=== PATIENT | male | born 1975 | race Caucasian/White ===

== ENCOUNTER 2022-08-26 10:57 | Emergency (ER) | payer OTHER ==
[2022-08-26 11:17] VITALS: RESP 18; TEMP 97.9; BMI 26.5
[2022-08-26] MEDS ORDERED: MAG HYDROX/AL HYDROX/SIMETH 30 ML UNIT-DOSE CUP PO ONE (11:37)
[2022-08-26] MEDS ORDERED: FAMOTIDINE 20 MG/50 ML IVPB 20 MG/50 ML MG IVPB ONE ×2 (11:37→12:02)
[2022-08-26] MEDS ORDERED: ONDANSETRON 4 MG/2 ML VIAL IVPUSH ONE (11:37)
[2022-08-26] MEDS ORDERED: ONDANSETRON 4 MG/2 ML VIAL ONE (12:02)
[2022-08-26] MEDS ORDERED: MAG HYDROX/AL HYDROX/SIMETH 30 ML UNIT-DOSE CUP ONE (12:02)
[2022-08-26] MEDS ORDERED: chlorproMAZINE HCL 25 MG/1 ML AMP IM ONE (12:29)
[2022-08-26 12:42] LABS: HEMATOCRIT 42.8 % (35.4-49); MCH 31.7 pg (25.7-33.7); MEAN CELL VOLUME 90.5 fl (80-96); MEAN PLT VOLUME 7.9 fl (7.5-11.1); PLATELET COUNT 322.9 10^3/uL (134-434); RBC 4.73 10^6/uL (4.00-5.60); RDW 13.6 % (11.9-15.9); WHITE BLOOD COUNT 16.9 10^3/uL (4.0-10.8)
[2022-08-26] MEDS ORDERED: chlorproMAZINE HCL 25 MG/1 ML AMP ONE (12:42)
[2022-08-26 12:46] LABS: ALBUMIN 3.9 g/dl (3.4-5.0); CALCIUM 9.1 mg/dl (8.5-10); CREATININE 0.7 mg/dl (0.55-1.3); TOT PROT 6.4 g/dl (6.4-8.2)
[2022-08-26 13:28] VITALS: BP 122/82; PULSE 83
[2022-08-26 13:52] LABS: PLATELET ESTIMATE ADEQUATE
[2022-08-26 15:51] LABS: INR 1.2 (0.83-1.09); PROTHROMBIN TIME (PATIENT) 13.8 SEC (9.7-13.0)
[2022-08-26 15:54] LABS: ACTIVATED PTT 28.7 SECONDS (25.2-36.5)
== END 2022-08-26 15:35 | disposition home or self-care (01) ==
LOC: FER 10:57
PROC: 3E023GC Introduction of Other Therapeutic Substance into Muscle, Percutaneous Approach (ICD-10-PCS; principal; 2022-08-26)
PROC: 3E033GC Introduction of Other Therapeutic Substance into Peripheral Vein, Percutaneous Approach (ICD-10-PCS; 2022-08-26)
PROC: 3E033GC Introduction of Other Therapeutic Substance into Peripheral Vein, Percutaneous Approach (ICD-10-PCS; 2022-08-26)
DX: R06.6 Hiccough (principal); R10.13 Epigastric pain; R07.9 Chest pain, unspecified
CPT/HCPCS: 0241U-QW; 36415; 74177-TC; 80053; 83690; 84484; 85027; 85610; 85651; 85730; 86140; 93005; 99285-25; Q9967

== ENCOUNTER 2024-04-27 04:44 | Day surgery (SDC) | payer OTHER ==
[2024-04-24 09:01] VITALS: BMI 28.4
[2024-04-27] MEDS ORDERED: PROPOFOL 20 ML ONE ×2 (09:48→11:42)
[2024-04-27] MEDS ORDERED: LIDOCAINE HCL/PF 2% SDV 5ML VIAL ONE (09:48)
[2024-04-27] MEDS ORDERED: MIDAZOLAM HCL 2 MG/2 ML SINGLE DOSE VIAL ONE (09:49)
[2024-04-27] MEDS ORDERED: BUPIVACAINE HCL/PF 0.5% (5MG/ML) 10 ML VIAL ONE (10:57)
[2024-04-27] MEDS ORDERED: LIDOCAINE HCL 1%, 10 MG/ML (20ML VIAL) ONE (10:57)
[2024-04-27] MEDS ORDERED: ONDANSETRON 4 MG/2 ML VIAL ONE (11:01)
[2024-04-27] MEDS ORDERED: DEXAMETHASONE SOD PHOSPHATE 4 MG/1 ML VIAL ONE (11:01)
[2024-04-27] MEDS ORDERED: KETOROLAC TROMETHAMINE 30 MG/1 ML VIAL ONE (11:01)
[2024-04-27] MEDS ORDERED: ceFAZolin SODIUM 1 GM VIAL ONE (11:01)
[2024-04-27] MEDS: ceFAZolin 2 GRAM PREMIX BAG IVPB ONE (11:15)
[2024-04-27] MEDS ORDERED: ONDANSETRON 4 MG/2 ML VIAL IVPUSH PRN (11:18)
[2024-04-27] MEDS ORDERED: oxyCODONE HCL 5 MG TABLET PO PRN ×2 (11:18)
[2024-04-27] MEDS ORDERED: PROMETHAZINE HCL 25 MG/1 ML VIAL IVPB PRN (11:18)
[2024-04-27] MEDS: LIDOCAINE HCL 1%, 10 MG/ML (20ML VIAL) NR ONE (11:26)
[2024-04-27] MEDS ORDERED: LACTATED RINGERS SOLUTION 1,000 ML IV SCH (11:30)
[2024-04-27] MEDS: ACETAMINOPHEN 1000 MG/100 ML BAG IVPB ONE (12:30)
[2024-04-27] MEDS ORDERED: ACETAMINOPHEN INJECTION 100 ML ONE (12:40)
[2024-04-27 13:35] VITALS: RESP 20
[2024-04-27 14:28] VITALS: BP 125/77; PULSE 62; TEMP 97
== END 2024-04-27 14:10 | disposition home or self-care (01) ==
LOC: JASU-SURG 04:44
PROVIDERS: ATTEND Urology
PROC: 0VBQ0ZZ Excision of Bilateral Vas Deferens, Open Approach (ICD-10-PCS; principal; 2024-04-27 11:00)
DX: Z30.2 Encounter for sterilization (principal)
CPT/HCPCS: 88302-TC; 94760; J0131